=== PATIENT | male | born 1990 | race African-American/Black ===

== ENCOUNTER 2017-08-30 18:21 | Emergency (ER) | payer SELFPAY ==
[2017-08-30] MEDS: AMOXICILLIN 500 MG CAP PO (20:05)
== END 2017-08-30 20:12 | disposition home or self-care (01) ==
LOC: M ED 18:21
DX: J02.0 Streptococcal pharyngitis (principal); L84 Corns and callosities; Z87.891 Personal history of nicotine dependence
CPT/HCPCS: 87880

== ENCOUNTER → 2017-12-22 | Outpatient (REF) | payer MEDICAID ==
[2017-12-22 13:48] LABS: ALBUMIN 4.3 GM/DL (3.2-5.2); ALBUMIN/GLOBULIN RATIO 0.69 (1.00-1.93); ALKALINE PHOSPHATASE 125 U/L (45-117); ALT/SGPT 32 U/L (12-78); ANION GAP 2 MEQ/L (8-16); AST/SGOT 38 U/L (7-37); BILIRUBIN,TOTAL 0.7 MG/DL (0.2-1.0); BLOOD UREA NITROGEN 10 MG/DL (7-18); CALCIUM LEVEL 9.4 MG/DL (8.5-10.1); CARBON DIOXIDE LEVEL 33 MEQ/L (21-32); CHLORIDE LEVEL 104 MEQ/L (98-107); CREATININE FOR GFR 1.06 MG/DL (0.70-1.30); GLOMERULAR FILTRATION RATE > 60.0 (>60); GLUCOSE, FASTING 89 MG/DL (70-100); POTASSIUM SERUM 3.9 MEQ/L (3.5-5.1); SODIUM LEVEL 139 MEQ/L (136-145); TOTAL PROTEIN 10.5 GM/DL (6.4-8.2)
== END ==
LOC: M LAB REF 12:15
DX: Z21 Asymptomatic human immunodeficiency virus [HIV] infection status (principal)

== ENCOUNTER → 2017-12-29 | Outpatient (REF) | payer OTHER ==
[2017-12-29 16:30] LABS: APPEARANCE, URINE CLEAR (CLEAR); BACTERIA, URINE AUTO NEGATIVE (NEGATIVE); BILIRUBIN, URINE AUTO NEGATIVE (NEGATIVE); BLOOD, URINE BLOOD NEGATIVE (NEGATIVE); COLOR, URINE YELLOW (YELLOW); GLUCOSE, URINE (UA) AUTO NEGATIVE (NEGATIVE); KETONE, URINE AUTO NEGATIVE (NEGATIVE); LEUKOCYTE ESTERASE, URINE AUTO NEGATIVE (NEGATIVE); MUCUS, URINE SMALL (NEGATIVE); NITRITE, URINE AUTO NEGATIVE (NEGATIVE); PROTEIN, URINE AUTO NEGATIVE (NEGATIVE); RBC, URINE AUTO 3 /HPF (0-3); SPECIFIC GRAVITY URINE AUTO 1.027 (1.002-1.035); SQUAMOUS EPITHELIAL CELL UR AU 0 /HPF (0-6); WBC, URINE AUTO 3 /HPF (0-3)
[2017-12-29 16:34] LABS: ALBUMIN 4.3 GM/DL (3.2-5.2); ALKALINE PHOSPHATASE 128 U/L (45-117); ALT/SGPT 34 U/L (12-78); ANION GAP 6 MEQ/L (8-16); AST/SGOT 47 U/L (7-37); BILIRUBIN,TOTAL 0.6 MG/DL (0.2-1.0); BLOOD UREA NITROGEN 12 MG/DL (7-18); CALCIUM LEVEL 9.3 MG/DL (8.5-10.1); CARBON DIOXIDE LEVEL 29 MEQ/L (21-32); CHLORIDE LEVEL 105 MEQ/L (98-107); GLOMERULAR FILTRATION RATE > 60.0 (>60); GLUCOSE, FASTING 91 MG/DL (70-100); POTASSIUM SERUM 4.2 MEQ/L (3.5-5.1); SODIUM LEVEL 140 MEQ/L (136-145); TOTAL PROTEIN 10.4 GM/DL (6.4-8.2)
[2017-12-29 17:54] LABS: CHLAMYDIA DNA AMPLIFICATION POSITIVE (NEGATIVE); GC DNA AMPLIFICATION NEGATIVE (NEGATIVE)
[2017-12-30 09:47] LABS: HEPATITIS B SURFACE ANTIGEN NEGATIVE (NEGATIVE)
[2017-12-30 09:53] LABS: HEPATITIS B SURFACE ANTIBODY NEGATIVE (POSITIVE)
[2017-12-30 10:09] LABS: HEPATITIS C VIRUS ABY INDEX 0.1 INDEX (<0.8)
[2018-01-02 00:07] LABS: % CD8 Pos Lymph 65.2 % (12.0-35.5); %CD4 Pos Lymphs 13.2 % (30.8-58.5); ABS Eosinophils 0.3 x10E3/uL (0.0-0.4); ABS Lymphs 3.3 x10E3/uL (0.7-3.1); ABS Monocytes 0.6 x10E3/uL (0.1-0.9); ABS Neutophils 2.1 x10E3/uL (1.4-7.0); Abs CD4 Helper 436 /uL (359-1519); Abs CD8 Suppres 2152 /uL (109-897); Eosinophils 5 % (Not Estab.); HEPATITIS A IgG TOTAL Negative (Negative); HGB 12.5 g/dL (13.0-17.7); HIV-1 RNA PCR QUANT 2 LC550285 44650 copies/mL (.); Immature Grans 0 % (Not Estab.); Lymphocytes 53 % (Not Estab.); MCH 25.3 pg (26.6-33.0); MCHC 31.3 g/dL (31.5-35.7); MCV 81 fL (79-97); Monocytes 9 % (Not Estab.); Neutrophils 33 % (Not Estab.); Platelets 229 x10E3/uL (150-379); QUANTIFERON GOLD TB Negative (Negative); RBC 4.94 x10E6/uL (4.14-5.80); RDW 15.2 % (12.3-15.4); TB Test (QFT) Antigen 0.14 IU/mL (.); TB Test (QFT) Antigen Minus Ni <0.01 IU/mL (.); TB Test (QFT) Nil 0.21 IU/mL (.); WBC 6.3 x10E3/uL (3.4-10.8)
[2018-01-02 14:10] LABS: RPR Non Reactive (Non Reactive); T PALLIDUM ANTIBODIES Positive (Negative); T PALLIDUM IMMUNOBLOT Positive (Negative)
== END ==
LOC: M SFHCPLAZ 13:21
DX: B20 Human immunodeficiency virus [HIV] disease (principal); Z11.3 Encounter for screening for infections with a predominantly sexual mode of transmission

== ENCOUNTER 2018-01-29 15:48 | Emergency (ER) | payer OTHER, MEDICAID ==
[2018-01-29] MEDS: TETRACAINE 0.5% OPHTH SOLN 4ML OD (17:30)
[2018-01-29] MEDS ORDERED: LISSAMINE GREEN OPHTH 1.5 MG STRIP As Ordered (17:35)
[2018-01-29] MEDS: FLUORESCEIN OPHTH 1 MG STRIP OD (18:10)
== END 2018-01-29 18:50 | disposition home or self-care (01) ==
LOC: M ED 15:48
DX: H10.31 Unspecified acute conjunctivitis, right eye (principal); H00.011 Hordeolum externum right upper eyelid; Z21 Asymptomatic human immunodeficiency virus [HIV] infection status; Z91.048 Other nonmedicinal substance allergy status; Z79.899 Other long term (current) drug therapy
CPT/HCPCS: 99283

== ENCOUNTER → 2018-04-01 | Outpatient (REF) | payer OTHER | LOC: M SFHCPLAZ 14:03 | DX: B20 Human immunodeficiency virus [HIV] disease (principal) ==

== ENCOUNTER 2018-05-11 13:18 | Emergency (ER) | payer OTHER | END 2018-05-11 14:56 | disposition home or self-care (01) | LOC: M ED 13:18 | DX: J20.8 Acute bronchitis due to other specified organisms (principal); Z21 Asymptomatic human immunodeficiency virus [HIV] infection status | CPT/HCPCS: 71046 ==

== ENCOUNTER 2018-05-21 19:33 | Emergency (ER) | payer OTHER, MEDICAID | END 2018-05-21 20:32 | disposition home or self-care (01) | LOC: M ED 19:33 | DX: R59.0 Localized enlarged lymph nodes (principal); B20 Human immunodeficiency virus [HIV] disease; F17.210 Nicotine dependence, cigarettes, uncomplicated; Z79.899 Other long term (current) drug therapy | CPT/HCPCS: 99283 ==

== ENCOUNTER 2018-06-02 18:59 | Emergency (ER) | payer OTHER, MEDICAID ==
[2018-06-02 20:51] LABS: KETONE, URINE AUTO RFX NEGATIVE (NEGATIVE); LEUKOCYTE ESTERASE UR AUTO RFX NEGATIVE (NEGATIVE); MUCUS, URINE RFX SMALL (NEGATIVE); NITRITE, URINE AUTO RFX NEGATIVE (NEGATIVE); RBC, URINE AUTO RFX 1 /HPF (0-3); SPECIFIC GRAVITY UR AUTO RFX 1.028 (1.002-1.035); SQUAM EPITHELIAL CELL UR AURFX 0 /HPF (0-6); WBC, URINE AUTO RFX 1 /HPF (0-3)
== END 2018-06-02 21:47 | disposition left against medical advice (07) ==
LOC: M ED 18:59
DX: A08.4 Viral intestinal infection, unspecified (principal); B20 Human immunodeficiency virus [HIV] disease; F41.9 Anxiety disorder, unspecified; F32.9 Major depressive disorder, single episode, unspecified; Z72.0 Tobacco use; Z79.899 Other long term (current) drug therapy
CPT/HCPCS: 81001

== ENCOUNTER 2018-06-21 18:23 | Emergency (ER) | payer OTHER, MEDICAID | END 2018-06-21 20:10 | disposition left against medical advice (07) | LOC: M ED 20:10 | DX: R07.9 Chest pain, unspecified (principal); Z79.899 Other long term (current) drug therapy; Z53.21 Procedure and treatment not carried out due to patient leaving prior to being seen by health care provider ==

== ENCOUNTER → 2018-07-05 | Outpatient (REF) | payer OTHER ==
[2018-07-05 13:20] LABS: ALBUMIN 4.7 GM/DL (3.2-5.2); ALBUMIN/GLOBULIN RATIO 0.81 (1.00-1.93); ALKALINE PHOSPHATASE 101 U/L (45-117); ALT/SGPT 28 U/L (12-78); ANION GAP 6 MEQ/L (8-16); AST/SGOT 35 U/L (7-37); BILIRUBIN,TOTAL 1.6 MG/DL (0.2-1.0); BLOOD UREA NITROGEN 9 MG/DL (7-18); CALCIUM LEVEL 9.4 MG/DL (8.5-10.1); CARBON DIOXIDE LEVEL 30 MEQ/L (21-32); CHLORIDE LEVEL 100 MEQ/L (98-107); CREATININE FOR GFR 1.05 MG/DL (0.70-1.30); GLOMERULAR FILTRATION RATE > 60.0 (>60); GLUCOSE, FASTING 100 MG/DL (70-100); POTASSIUM SERUM 4.2 MEQ/L (3.5-5.1); SODIUM LEVEL 136 MEQ/L (136-145); TOTAL PROTEIN 10.5 GM/DL (6.4-8.2)
[2018-07-05 14:39] LABS: CHLAMYDIA DNA AMPLIFICATION NEGATIVE (NEGATIVE); GC DNA AMPLIFICATION NEGATIVE (NEGATIVE)
[2018-07-09 08:08] LABS: % CD8 Pos Lymph 66.3 % (12.0-35.5); %CD4 Pos Lymphs 15.8 % (30.8-58.5); ABS Eosinophils 0.1 x10E3/uL (0.0-0.4); ABS Lymphs 1.8 x10E3/uL (0.7-3.1); ABS Monocytes 0.5 x10E3/uL (0.1-0.9); ABS Neutophils 2.3 x10E3/uL (1.4-7.0); Abs CD4 Helper 284 /uL (359-1519); Abs CD8 Suppres 1193 /uL (109-897); CD4/CD8 Ratio 0.24 (0.92-3.72); Eosinophils 1 % (Not Estab.); HCT 40.3 % (37.5-51.0); HGB 13.7 g/dL (13.0-17.7); HIV-1 RNA PCR QUANT 2 LC550285 22800 copies/mL (.); HIV-1 RNA PCR QUANT 3 LC550285 4.358 (.); Immature Grans 0 % (Not Estab.); Lymphocytes 39 % (Not Estab.); MCH 26.6 pg (26.6-33.0); MCV 78 fL (79-97); Monocytes 10 % (Not Estab.); Neutrophils 50 % (Not Estab.); Platelets 192 x10E3/uL (150-379); RBC 5.16 x10E6/uL (4.14-5.80); RDW 15.7 % (12.3-15.4); RPR Reactive (Non Reactive); T PALLIDUM ANTIBODIES Positive (Negative); WBC 4.7 x10E3/uL (3.4-10.8)
== END ==
LOC: M SFHCPLAZ 11:40
DX: B20 Human immunodeficiency virus [HIV] disease (principal); A74.9 Chlamydial infection, unspecified
CPT/HCPCS: 80053

== ENCOUNTER → 2018-07-19 | Outpatient (REF) | payer OTHER, MEDICAID ==
[2018-07-19 13:26] LABS: APPEARANCE, URINE CLOUDY (CLEAR); BACTERIA, URINE AUTO 2+ (NEGATIVE); BILIRUBIN, URINE AUTO NEGATIVE (NEGATIVE); BLOOD, URINE BLOOD NEGATIVE (NEGATIVE); COLOR, URINE YELLOW (YELLOW); GLUCOSE, URINE (UA) AUTO NEGATIVE (NEGATIVE); KETONE, URINE AUTO NEGATIVE (NEGATIVE); LEUKOCYTE ESTERASE, URINE AUTO 2+ (NEGATIVE); MUCUS, URINE SMALL (NEGATIVE); NITRITE, URINE AUTO NEGATIVE (NEGATIVE); PROTEIN, URINE AUTO NEGATIVE (NEGATIVE); RBC, URINE AUTO 3 /HPF (0-3); SPECIFIC GRAVITY URINE AUTO 1.024 (1.002-1.035); SQUAMOUS EPITHELIAL CELL UR AU 0 /HPF (0-6); UROBILINOGEN, URINE AUTO 0.2 mg/dL (0.0-2.0); WBC, URINE AUTO 106 /HPF (0-3)
[2018-07-19 14:36] LABS: CHLAMYDIA DNA AMPLIFICATION NEGATIVE (NEGATIVE); GC DNA AMPLIFICATION POSITIVE (NEGATIVE)
== END ==
LOC: M SFHCPLAZ 12:54
DX: A74.9 Chlamydial infection, unspecified (principal)
CPT/HCPCS: 81001

== ENCOUNTER → 2018-08-13 | Outpatient (REF) | payer OTHER ==
[~2018-08-13] MED LIST: AMOX500C PO; BACIOIN5 OD; MUCI600T37 PO; TRIU1TAB PO; ZOFR4TAB14 PO
[2018-08-13 12:28] LABS: ALBUMIN 4.1 GM/DL (3.2-5.2); ALT/SGPT 22 U/L (12-78); BILIRUBIN,TOTAL 0.9 MG/DL (0.2-1.0); BLOOD UREA NITROGEN 11 MG/DL (7-18); CARBON DIOXIDE LEVEL 30 MEQ/L (21-32); CHLORIDE LEVEL 102 MEQ/L (98-107); CREATININE FOR GFR 1.15 MG/DL (0.70-1.30); GLOMERULAR FILTRATION RATE > 60.0 (>60); GLUCOSE, FASTING 107 MG/DL (70-100); POTASSIUM SERUM 4.1 MEQ/L (3.5-5.1); SODIUM LEVEL 137 MEQ/L (136-145); TOTAL PROTEIN 9.5 GM/DL (6.4-8.2)
[2018-08-13 14:36] LABS: CHLAMYDIA DNA AMPLIFICATION NEGATIVE (NEGATIVE); GC DNA AMPLIFICATION NEGATIVE (NEGATIVE)
[2018-08-18 00:06] LABS: % CD8 Pos Lymph 65.2 % (12.0-35.5); ABS Eosinophils 0.2 x10E3/uL (0.0-0.4); ABS Lymphs 2.7 x10E3/uL (0.7-3.1); ABS Monocytes 0.4 x10E3/uL (0.1-0.9); ABS Neutophils 1.6 x10E3/uL (1.4-7.0); Abs CD4 Helper 432 /uL (359-1519); Abs CD8 Suppres 1760 /uL (109-897); CD4/CD8 Ratio 0.25 (0.92-3.72); Eosinophils 4 % (Not Estab.); HCT 41.8 % (37.5-51.0); HGB 13.5 g/dL (13.0-17.7); HIV-1 RNA PCR QUANT 2 LC550285 90 copies/mL (.); HIV-1 RNA PCR QUANT 3 LC550285 1.954 (.); Immature Grans 0 % (Not Estab.); Lymphocytes 56 % (Not Estab.); MCH 25.8 pg (26.6-33.0); MCHC 32.3 g/dL (31.5-35.7); MCV 80 fL (79-97); Monocytes 8 % (Not Estab.); Neutrophils 32 % (Not Estab.); Platelets 186 x10E3/uL (150-379); RBC 5.24 x10E6/uL (4.14-5.80); RDW 15.9 % (12.3-15.4); WBC 4.9 x10E3/uL (3.4-10.8)
== END ==
LOC: M SFHCPLAZ 08:48
PROVIDERS: ATTEND Internal Medicine Infectious Disease
DX: B20 Human immunodeficiency virus [HIV] disease (principal)

== ENCOUNTER 2018-10-18 21:47 | Emergency (ER) | payer MEDICAID, OTHER ==
[~2018-10-18] VITALS: Ht 172.7 cm; Wt 81.8 kg
[2018-10-18 21:47] VITALS: BP 140/84
[2018-10-18] MEDS ORDERED: ALEV220C2 PO (21:54)
[2018-10-18] MEDS ORDERED: PENICILLIN V POTASSIUM 500 MG TAB PO ONE (22:45)
[2018-10-18] MEDS ORDERED: traMADol 50 MG TAB (BULK 4 TAB ED) PO ONE (22:45)
[2018-10-18] MEDS ORDERED: PENI500T PO (22:46)
[2018-10-18] MEDS ORDERED: TRAM50TA2 PO (22:46)
== END 2018-10-18 23:03 | disposition home or self-care (01) ==
LOC: M ED 21:47
DX: K04.7 Periapical abscess without sinus (principal); K08.89 Other specified disorders of teeth and supporting structures; I10 Essential (primary) hypertension

== ENCOUNTER 2018-11-22 11:19 | Emergency (ER) | payer OTHER ==
[~2018-11-22] VITALS: Ht 172.7 cm; Wt 75.9 kg
[~2018-11-22 11:19] MED LIST changes: +ALEV220C2 PO; +PENI500T PO; +TRAM50TA2 PO
[2018-11-22] MEDS ORDERED: SPIR-10 (11:30)
[2018-11-22] MEDS ORDERED: ESTR0.5T3 (11:30)
[2018-11-22] MEDS ORDERED: BIKT1TAB (11:31)
[2018-11-22] MEDS ORDERED: ACETAMINOPH W/CODEINE #3 TAB UD PO ONE (12:15)
[2018-11-22] MEDS ORDERED: TYLETAB14 PO (12:18)
[2018-11-22] MEDS ORDERED: MAGICMW SSP (12:19)
[2018-11-22] MEDS ORDERED: PENI500T PO (12:19)
[2018-11-22 12:27] VITALS: BP 134/88
== END 2018-11-22 12:29 | disposition home or self-care (01) ==
LOC: M ED 11:19
DX: K04.7 Periapical abscess without sinus (principal)

== ENCOUNTER → 2018-11-26 | Outpatient (REF) | payer OTHER ==
[~2018-11-26] MED LIST changes: +BIKT1TAB; +ESTR0.5T3; +MAGICMW SSP; +SPIR-10; +TYLETAB14 PO
[2018-11-26 14:36] LABS: ALBUMIN 4.1 GM/DL (3.2-5.2); ALT/SGPT 38 U/L (12-78); BILIRUBIN,TOTAL 0.7 MG/DL (0.2-1.0); BLOOD UREA NITROGEN 15 MG/DL (7-18); CALCIUM LEVEL 9.3 MG/DL (8.5-10.1); CARBON DIOXIDE LEVEL 31 MEQ/L (21-32); CHLORIDE LEVEL 101 MEQ/L (98-107); CREATININE FOR GFR 1.25 MG/DL (0.70-1.30); GLOMERULAR FILTRATION RATE > 60.0 (>60); GLUCOSE, FASTING 102 MG/DL (70-100); POTASSIUM SERUM 4.5 MEQ/L (3.5-5.1); SODIUM LEVEL 137 MEQ/L (136-145); TOTAL PROTEIN 9.6 GM/DL (6.4-8.2)
[2018-11-30 00:06] LABS: % CD8 Pos Lymph 64.9 % (12.0-35.5); ABS Eosinophils 0.2 x10E3/uL (0.0-0.4); ABS Lymphs 2.5 x10E3/uL (0.7-3.1); ABS Monocytes 0.3 x10E3/uL (0.1-0.9); ABS Neutophils 1.5 x10E3/uL (1.4-7.0); Abs CD4 Helper 375 /uL (359-1519); Abs CD8 Suppres 1623 /uL (109-897); CD4/CD8 Ratio 0.23 (0.92-3.72); Eosinophils 4 % (Not Estab.); HCT 40.2 % (37.5-51.0); HGB 13.4 g/dL (13.0-17.7); HIV-1 RNA PCR QUANT 2 LC550285 <20 copies/mL (.); Immature Grans 0 % (Not Estab.); Lymphocytes 57 % (Not Estab.); MCH 26.4 pg (26.6-33.0); MCHC 33.3 g/dL (31.5-35.7); MCV 79 fL (79-97); Monocytes 6 % (Not Estab.); Neutrophils 33 % (Not Estab.); Platelets 252 x10E3/uL (150-379); RBC 5.07 x10E6/uL (4.14-5.80); WBC 4.4 x10E3/uL (3.4-10.8)
== END ==
LOC: M SFHCPLAZ 10:15
PROVIDERS: ATTEND Internal Medicine Infectious Disease
DX: B20 Human immunodeficiency virus [HIV] disease (principal); F32.0 Major depressive disorder, single episode, mild; F64.0 Transsexualism

== ENCOUNTER 2019-01-23 23:11 | Emergency (ER) | payer MEDICAID, OTHER ==
[~2019-01-23] VITALS: Ht 175.3 cm; Wt 80.9 kg
[2019-01-24] MEDS ORDERED: ALBUTEROL SULFATE 2.5 MG/0.5 ML INH NEB SOLN NEB ONE (00:45)
[2019-01-24] MEDS ORDERED: ZITHTAB PO (02:45)
[2019-01-24] MEDS ORDERED: ALBUTEROL 90 MCG/ACT 8GM HFA INHALER INH ONE ×2 (02:45→03:00)
[2019-01-24] MEDS ORDERED: AZITHROMYCIN 250 MG TAB PO ONE (02:45)
[2019-01-24] MEDS ORDERED: MUCI60TA7 PO (02:45)
[2019-01-24] MEDS ORDERED: TESS100C PO (02:45)
[2019-01-24 03:12] VITALS: BP 126/74
--- NOTE | 2019-01-24 07:40 | REP ---
PA and lateral chest: Comparison is 05/11/2018. The lung mendez are clear. The cardiac size is normal. The urmlia, mediastinum, and skeletal structures are unremarkable. Impression: Negative PA and lateral chest. There is no interval change. Electronically Signed by Timothy Martinez MD 01/24/2019 07:32 A
== END 2019-01-24 03:00 | disposition home or self-care (01) ==
LOC: M ED 23:11
DX: J20.9 Acute bronchitis, unspecified (principal); B20 Human immunodeficiency virus [HIV] disease; F41.9 Anxiety disorder, unspecified; F32.9 Major depressive disorder, single episode, unspecified; Z79.899 Other long term (current) drug therapy

== ENCOUNTER 2019-02-02 19:43 | Emergency (ER) | payer OTHER ==
[~2019-02-02] VITALS: Ht 175.3 cm; Wt 179.0 kg
[~2019-02-02 19:43] MED LIST changes: +MUCI60TA7 PO; +TESS100C PO; +ZITHTAB PO
[2019-02-02] MEDS ORDERED: POLYTRIM OPTH DROPS 10ML OU STA (22:14)
[2019-02-02 22:24] VITALS: BP 138/91
== END 2019-02-02 22:32 | disposition home or self-care (01) ==
LOC: M ED 19:43
DX: H10.33 Unspecified acute conjunctivitis, bilateral (principal); B20 Human immunodeficiency virus [HIV] disease; Z87.891 Personal history of nicotine dependence; Z79.899 Other long term (current) drug therapy

== ENCOUNTER 2019-02-17 02:42 | Emergency (ER) | payer OTHER ==
[~2019-02-17] VITALS: Ht 175.3 cm; Wt 78.2 kg
[2019-02-17 02:43] VITALS: BP 135/61
[2019-02-17] MEDS ORDERED: AUGM875T28 PO (04:14)
[2019-02-17] MEDS ORDERED: AUGMENTIN 875 MG TAB PO ONE (04:15)
== END 2019-02-17 04:26 | disposition home or self-care (01) ==
LOC: M ED 02:42
DX: S01.111A Laceration without foreign body of right eyelid and periocular area, initial encounter (principal); S01.151A Open bite of right eyelid and periocular area, initial encounter; W50.0XXA Accidental hit or strike by another person, initial encounter; Y92.099 Unspecified place in other non-institutional residence as the place of occurrence of the external cause; Y93.9 Activity, unspecified; Y99.9 Unspecified external cause status; B20 Human immunodeficiency virus [HIV] disease; Z79.899 Other long term (current) drug therapy

== ENCOUNTER → 2019-02-28 | Outpatient (REF) | payer OTHER ==
[~2019-02-28] MED LIST changes: +AUGM875T28 PO
[2019-02-28 13:46] LABS: ALBUMIN 4.4 GM/DL (3.2-5.2); ALT/SGPT 25 U/L (12-78); BILIRUBIN,TOTAL 1.5 MG/DL (0.2-1.0); BLOOD UREA NITROGEN 10 MG/DL (7-18); CALCIUM LEVEL 9.6 MG/DL (8.5-10.1); CARBON DIOXIDE LEVEL 32 MEQ/L (21-32); CHLORIDE LEVEL 103 MEQ/L (98-107); CREATININE FOR GFR 1.11 MG/DL (0.70-1.30); GLOMERULAR FILTRATION RATE > 60.0 (>60); GLUCOSE, FASTING 87 MG/DL (70-100); SODIUM LEVEL 139 MEQ/L (136-145); TOTAL PROTEIN 9.1 GM/DL (6.4-8.2)
[2019-02-28 13:53] LABS: APPEARANCE, URINE CLEAR (CLEAR); BACTERIA, URINE AUTO NEGATIVE (NEGATIVE); BILIRUBIN, URINE AUTO NEGATIVE (NEGATIVE); BLOOD, URINE BLOOD NEGATIVE (NEGATIVE); COLOR, URINE YELLOW (YELLOW); GLUCOSE, URINE (UA) AUTO NEGATIVE (NEGATIVE); KETONE, URINE AUTO NEGATIVE (NEGATIVE); LEUKOCYTE ESTERASE, URINE AUTO NEGATIVE (NEGATIVE); MUCUS, URINE SMALL (NEGATIVE); NITRITE, URINE AUTO NEGATIVE (NEGATIVE); PROTEIN, URINE AUTO NEGATIVE (NEGATIVE); RBC, URINE AUTO 2 /HPF (0-3); SPECIFIC GRAVITY URINE AUTO 1.026 (1.002-1.035); SQUAMOUS EPITHELIAL CELL UR AU 0 /HPF (0-6); UROBILINOGEN, URINE AUTO 0.2 mg/dL (0.0-2.0); WBC, URINE AUTO 1 /HPF (0-3)
[2019-02-28 15:54] LABS: CHLAMYDIA DNA AMPLIFICATION NEGATIVE (NEGATIVE); GC DNA AMPLIFICATION NEGATIVE (NEGATIVE)
[2019-03-03 08:15] LABS: % CD8 Pos Lymph 62.9 % (12.0-35.5); %CD4 Pos Lymphs 16.9 % (30.8-58.5); ABS Eosinophils 0.4 x10E3/uL (0.0-0.4); ABS Lymphs 2.4 x10E3/uL (0.7-3.1); ABS Monocytes 0.4 x10E3/uL (0.1-0.9); ABS Neutophils 2.4 x10E3/uL (1.4-7.0); Abs CD4 Helper 406 /uL (359-1519); Abs CD8 Suppres 1510 /uL (109-897); CD4/CD8 Ratio 0.27 (0.92-3.72); CHLAMYDIA PHARYNGEAL APTIMA Positive (Negative); Eosinophils 8 % (Not Estab.); GC PHARYNGEAL APTIMA Negative (Negative); HCT 41.7 % (37.5-51.0); HGB 13.7 g/dL (13.0-17.7); HIV-1 RNA PCR QUANT 2 LC550285 <20 copies/mL (.); Immature Grans 0 % (Not Estab.); Lymphocytes 43 % (Not Estab.); MCH 26.6 pg (26.6-33.0); MCHC 32.9 g/dL (31.5-35.7); MCV 81 fL (79-97); Monocytes 7 % (Not Estab.); Neutrophils 42 % (Not Estab.); Platelets 196 x10E3/uL (150-450); RBC 5.15 x10E6/uL (4.14-5.80); RDW 14.6 % (12.3-15.4); WBC 5.7 x10E3/uL (3.4-10.8)
== END ==
LOC: M SFHCPLAZ 11:04
PROVIDERS: ATTEND Internal Medicine Infectious Disease
DX: B20 Human immunodeficiency virus [HIV] disease (principal)